=== PATIENT | male | born 1955 | race Caucasian/White ===

== ENCOUNTER 2024-08-03 17:43 | Observation (INO) | payer MEDICARE, OTHER, SELFPAY ==
--- NOTE | ~2024-08-03 | CT_ITS ---
EXAMINATION: CT brain wo con DATE: 08/03/2024 18:08 INDICATION: resolved episode of R sided weakness . TECHNIQUE: Computed tomography (CT) of the head was performed without intravenous contrast. The mA wa s adjusted according to patient size. Iterative reconstruction technique was employed. The dose-lengt h product was 681.00 mGy-cm. COMPARISON: None. FINDINGS: No acute intracranial hemorrhage or extra-axial fluid collection. No hydrocephalus, mass, or herniation. No acute ischemic infarct. Unremarkable dural venous sinus attenuation. No acute osseous abnormality. Left frontal craniotomy defect. Right posterior ethmoid retention cyst/polyp, the remaining aerated spaces are clear. Right frontal and bilateral periventricular encephalomalacia. IMPRESSION: No acute intracranial process. Reviewed, dictated and finalized at location K.
--- NOTE | ~2024-08-03 | CT_ITS ---
EXAMINATION: CTA brain carotid DATE: 08/03/2024 21:35 INDICATION: R sided weakness, resolved TECHNIQUE: Computed tomographic angiography (CTA) of the head and neck was performed with 100 mL Omni paque-350 intravenous contrast. Automated exposure control and iterative reconstruction technique wer e employed. The dose-length product was 1227.40 mGy-cm. Maximum intensity projection and volume rende red 3D-reconstructions were created by the technologist on a separate workstation. COMPARISON: CT brain, same date. FINDINGS: CTA HEAD: No large vessel occlusion, aneurysm, high flow vascular malformation, nidus or extravasation. No cont rast filling in the distal portion of the sigmoid sinus and upper left internal jugular vein. Symmetr ic parenchymal enhancement. CTA NECK: Aortic arch and proximal great vessels: Bovine arch. Dilation of the aortic arch to 3.2 cm. Right common carotid, carotid bifurcation, and internal carotid artery: No plaque.There is 0% stenosi s of the proximal right internal carotid artery relative to normal distal artery lumen diameter (NASC ET criteria). Left common carotid, carotid bifurcation, and internal carotid artery: No plaque.There is 0% stenosis of the proximal left internal carotid artery relative to normal distal artery lumen diameter (NASCET criteria). Vertebral arteries: No significant plaque or stenosis. Left vertebral artery is dominant. Short segme nts of the bilateral vertebral arteries are obscured by metal artifact. Other findings: No contrast filling in the mid and upper portions of the left internal jugular vein. Bilateral apical pleural thickening. ACDF hardware spanning C3-C6. IMPRESSION: No large vessel intracranial occlusion, high-grade intracranial stenosis, or aneurysm. No carotid or vertebral artery occlusion, dissection, or significant stenosis. Nonfilling of the distal sigmoid sinus and upper/mid internal jugular vein on the left, which may be secondary to thrombus or unopacified blood/contrast phase. Consider MRV for further evaluation. Thoracic aortic ectasia. Reviewed, dictated and finalized at location K. IMPRESSION: No large vessel intracranial occlusion, high-grade intracranial stenosis, or an eurysm. No carotid or vertebral artery occlusion, dissection, or significant stenosis. Nonfilling of the distal sigmoid sinus and upper/mid internal jugular vein on t he left, which may be secondary to thrombus or unopacified blood/contrast phase . Consider MRV for further evaluation. Thoracic aortic ectasia.
--- NOTE | ~2024-08-03 | XR_ITS ---
XR chest 2V Ordering provider: Wanda Ruby MD History: 69 years Male with . resolved R sided weakness . Comparison: None. FINDINGS: MEDIASTINUM: The cardiac silhouette is not enlarged. LUNGS: No infiltrates, effusions or pneumothorax. OTHER: No free air under the diaphragm. Left Shoulder osteoarthritic changes. Degenerative changes of the spine IMPRESSION: No acute cardiopulmonary pathology. Reviewed, dictated and finalized at location A.
--- NOTE | 2024-08-03 17:43 | ECG_ITS ---
Test Date: 2024-08-03 18:35:55 Measurements Intervals [place] Rate: 69 P: 43 MO: 164 QRS: 2 QRSD: 115 T: 58 QT: 379 QTc: 406 Interpretive Statements SINUS RHYTHM MODERATE INTRAVENTRICULAR CONDUCTION DELAY [110+ ms QRS DURATION] No previous ECG available for comparison Electronically Signed On 08-04-2024 11:50:30 CDT by Coleen Zhou M.D.
[2024-08-03 17:47] VITALS: BP 145/92; PULSE 75; RESP 16; TEMP 36.4; O2SAT 99
--- NOTE | 2024-08-03 18:01 | PC.NURSE ---
Pt. states i just peed less than an hour ago. Pt. is aware MD would like a urine sample and will let RN know when he is able to go.
[2024-08-03 18:04] LABS: Glucose Point of Care 121 mg/dl (65-105)
[2024-08-03 18:08] LABS: Basophils Percent Auto 0.3 % (0.2-1.2); Eosinophils Absolute Auto 0.2 K/mm3 (0-0.3); Eosinophils Percent Auto 2.5 % (0-4.4); Hematocrit 36.8 % (42.0-52.0); Hemoglobin 12.5 g/dL (14.0-18.0); Immature Granulocyte Absolute 0.02 K/mm3 (0.00-0.031); Immature Granulocyte Percent A 0.3 % (0-0.5); Lymphocytes Absolute Auto 1.78 K/mm3 (0.9-3.2); Lymphocytes Percent Auto 27.6 % (18.3-44.2); Mean Corpuscular Hemoglobin 34.8 pg (26-34); Mean Corpuscular Volume 102.5 fl (80-100); Mean Platelet Volume 8.7 fl (7.4-10.4); Monocytes Absolute Auto 0.5 K/mm3 (0.1-0.6); Monocytes Percent Auto 8.4 % (2.6-8.5); Neutrophils Absolute Auto 3.9 K/mm3 (1.3-6.7); Neutrophils Percent Auto 60.9 % (45.5-73.1); Platelet Count Result 246 k/mm3 (150-375); Red Blood Count 3.59 M/mm3 (4.6-6.20); Red Cell Distribution Width 12.4 % (11.5-14.5); White Blood Count 6.5 K/mm3 (4.5-10.0)
[2024-08-03 18:19] LABS: INR 0.9; Prothrombin Time 12.9 Seconds (11.1-14.7)
[2024-08-03 18:20] LABS: Partial Thromboplastin Time 26.5 Seconds (22.3-36.8)
[2024-08-03 18:22] LABS: Alanine Aminotransferase 21 U/L (6-50); Albumin Level 4.2 g/dL (3.5-5.1); Alkaline Phosphatase 82 U/L (38-126); Anion Gap 8 mmol/L (4-12); Aspartate Amino Transferase 29 U/L (17-59); Bilirubin,Total 0.2 mg/dL (0.2-1.3); Blood Urea Nitrogen 19 mg/dL (9-20); Carbon Dioxide 24 mmol/L (22-30); Chloride 101 mmol/L (98-107); Estimated CRCL calculation 63 ml/min; Estimated Glomerular Filt Rate > 60; Glucose 122 mg/dL (65-110); Potassium 3.4 mmol/L (3.4-5.0); Sodium 133 mmol/L (137-145)
[2024-08-03 18:34] LABS: Troponin I < 0.012 ng/mL (0.000-0.034)
--- OUTSIDE RECORDS SUMMARY | 2024-08-03 21:00 | XMS_ITS | Clinical Summary ---
Author Organization [facility] Address [address] [place] [address] Care Team Providers Care Tar Heater Name Role Phone Kaela Stephenson Vaughn APNP-TRANSPORTATION AIDE Unavailable [phone] Kaela Stephenson APNP-TRANSPORTATION AIDE Unavailable [phone] Reji Barnett MD Primary Care Provider [phone] Source Comments [facility],non-owned Affiliates and Associated Physician Practices is amultiple site organization consisting of ambulatory clinics and hospital sitesin [place], [place], [place] and [place]. This disclosure is being madepursuant to the Care Everywhere program and may not contain all information available regarding this patient. Last updated 17.[facility] Allergies No known active allergies Medications * Be aware that medications may not be up to date on this document. Alwaysverify current medications with the patient. Calcium Carbonate-Vit D-Min (CALCIUM 1200) [id number] MG-UNIT CHEW Take 1 tablet by mouth 2 times daily 6 Active Multiple Vitamin (MULTI-DAY VITAMINS) TABS Take 1 (one) tablet by mouth once daily 6 Active acetaminophen (Tylenol) 325 MG tablet Take 2 (two) tablets by mouth every 6 hours as needed for Fever or Pain Maximum allowable Acetaminophen amount = 4 Grams (4000 mg) / 24 hours. 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 [facility] 199610/01/2023 Hyperopia of both eyes with astigmatism and pres byopia 07/10/2023 Absolute anemia 03/13/2022 History of rectal bleeding 03/13/2022 Nuclear sclerosis of both eyes 03/30/2019 Dry eye syndrome of both eyes 03/30/2019 Meibomian gland dysfunction (MGD) of upper and lower lids of both eyes 03/30/2019 Primary osteoarthritis, left shoulder 11/19/2018 Bladder outflow obstruction 07/14/2018 Overactive detrusor 07/14/2018 Status post C4-5, C5-6 ACDF for mobile spondylolisthesis, myelopathy 04/15/2018 Cervical stenosis of spine 09/19/2017 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 09/02/2017 Cervical radiculopathy 07/24/2017 Carpal tunnel syndrome, bilateral 07/24/2017 Benign prostatic hyperplasia with urinary freque ncy 09/14/2016 History of brain tumor 05/07/2016 Overview (11/14/2017): 1996: brain tumor , 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 - surgery at [place], and radiation in [place] at [facility] - Tegretol Seizure 05/07/2016 Overview (11/14/2017): - chronic tegretol - reports normal BMD [id number] Tubular adenoma 05/03/2016 Overview (11/14/2017): 2012 : tubular adenoma , repeat 2018 Urge incontinence 03/04/2016 Resolved Problems Problem Noted Date Diagnosed Date Resolved Date Hyperopic astigmatism of both eyes 03/30/2019 07/10/2023 Presbyopia 03/30/2019 07/10/2023 Medication management 07/30/20172024 Oligodendroglioma 07/30/2016 07/07/2024 Preventative health care 05/03/2016 Encounters Date Type Department Care Team Description 07/12/2024 9:45 AM CDT Office Visit [facility] - Optometry [address] [place] [address] Edilia, Shalom L, OD Combined forms of age-related cataract of both eyes (Primary Dx); Meibomian gland dysfunction (MGD) of upper and lower lids of both eyes; Dry eye syndrome of both eyes; Hyperopia of both eyes with astigmatism and presbyopia 07/12/2024 Results Follow-Up [facility] - Internal Medicine [address] [place] [address] Russ Echevarria PA-C 07/12/2024 Travel 07/08/2024 11:45 AM CDT Office Visit [facility] - Internal Medicine [address] [place] [address] Russ Echevarria PA-C Medicare annual wellness visit, initial (Primary Dx); History of brain tumor; Hx of craniotomy for resection of oligodendroglioma [facility] 1996; Seizure (HCC); Hyponatremia; Urge incontinence; Bladder outflow obstruction; Cervical stenosis of spine; Status post C4-5, C5-6 ACDF for mobile spondylolisthesis, myelopathy; Primary osteoarthritis, left shoulder; Chronic pain of left knee; Primary osteoarthritis involving multiple joints; History of chest pain; Tubular adenoma; Screening, lipid; Screening for colon cancer; Prostate cancer screening; Need for vaccination 07/08/2024 Travel 06/28/2024 Travel 06/08/[address] [facility] - Neurology [address] [place] [address] Emil Houston MD Refill Request from Last 3 Months Immunizations Immunization Administration Dates Next Due COVID PFIZER BIVALENT 12Y+ 30mcg/0.3ML 2 Covid Pfizer primary monoval ent 12+ yr 0.3mL Purple cap 09/07/2020,08/16/2020 INFLUENZA VACCINE, ADJUVANTE D, QUADR. (FLUAD QUADRIVALENT; 65Y+) (AIIV4) 03/13/2022 TDAP (7yrs+) 09/27/2014 TDAP, HISTORIC VACCINE 10/07/2014 Family History Medical History Relation Name Comments None Known Brother leida Status: Alive None Known Father None Known Maternal Grandfather Status: None Known Maternal Grandmother Status: Thyroid Disease Mother Cancer Paternal Grandfather unknown ; Status: None Known Paternal Grandmother Status: Thyroid Disease Sister 1 hailey None Known Sister 2 maddie Status: Alive Thyroid Disease Sister 3 brendan None Known Sister 4 mecca Status: Alive None Known Sister 5 syd Status: Alive CAD (Coronary Artery Disease) Neg Hx Cancer - Colon Neg Hx Diabetes Neg Hx Relation Name Status Comments Brother leida Alive Father Maternal Grandfather Maternal Grandmother Mother Paternal Grandfather Paternal Grandmother Sister 1 hailey Alive Sister 2 maddie Alive Sister 3 brendan Alive Sister 4 mecca Alive Sister 5 syd Alive Social History Tobacco Use Types Packs/Day Years Used Date Smoking Tobacco: Never Passive Smoke Exposure: Past Smokeless Tobacco: Never Tobacco Cessation:Counseling Given: Not Answered Passive Exposure Comments:exposed only for a few yrs as child Alcohol Use Standard Drinks/Week Comments Yes 0 (1 standard drink = 0.6 oz pur e alcohol) 1-2 beers/ week PHQ-2 Answer Date Recorded Patient Health Questionnaire-2 Score 0 07/08/2024 Sex and Gender Information Value Date Recorded Sex Assigned at Not on file Legal Sex Male 1:26 PM CDT Gender Identity Not on file Sexual Orientation Not on file 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 Not on file Not on file Not on file Last Filed Vital Signs Vital Sign Reading Time Taken Comments Blood Pressure 130/80 07/08/2024 11:34 AM CDT Pulse 62 07/08/2024 11:34 AM CDT Temperature 36.4 C (97.6 F) 11/07/2023 8:38 AM CDT Respiratory Rate 12 11/07/2023 11:40 AM CDT Oxygen Saturation 100% 07/08/2024 11:34 AM CDT Inhaled Oxygen Concentration - - Weight 74.4 kg (164 lb) 07/08/2024 11:34 AM CDT Height 182.9 cm (6') 11/07/2023 8:38 AM CDT Body Mass Index 22.24 11/07/2023 8:38 AM CDT Plan of Treatment Upcoming Encounters Date Type Department Care Team (Late st Contact Info) Description 08/19/2024 2:55 PM CDT Office Visit [facility] - Sports Medicine [address] [place] [phone] Russ Echevarria PA-C [address] [place], [place] [id number] Kia Perkins MD [address] [place] [phone] 12/27/2024 1:30 PM CDT Office Visit [facility] - Neurology [address], [place] [phone] Emil Houston MD [address] [facility] [place] [phone] 03/29/2025 9:30 AM GRADER TENDER Office Visit [facility] - Dermatology [address], [place] [phone] Jessica Farnsworth MD [address] [place] [address] [phone] Health Maintenance Due Date Last Done Comments COLOGUARD (AGES 45-75) - COLON CA SCREENING 1955 CT COLONOGRAPHY - COLON CA SCREENING 1955 FIT - COLON CA SCREENING 1955 FLEX SIG - COLON CA SCREENING 1955 PNEUMOCOCCAL VACCINE 50+ (1 of 1 - PCV) 02/23/2006 ZOSTER VACCINE (1 of 2) 02/23/2006 COVID-19 VACCINE (4 - season) 2023 03/13/2022, 09/07/2020, 08/16/2020 DTAP/TDAP/TD VACCINES (3 - Td or Tdap) 10/07/2024 10/07/2014, 09/27/2014 INFLUENZA VACCINE (Season Ended) 2024 03/13/2022 MEDICARE AWV 12 MONTHS 07/08/2025 07/08/2024 LIPID TESTING 07/12/2025 07/12/2024, 04/24, 07/30/2021, Additional history exists COLON MONITORING 11/06/2028 11/07/2023, , 07/21/2018, Additional history exists Colorectal Cancer Screening 11/06/2028 Respiratory Syncytial Virus (RSV) Vaccine Pt: or over 60 yrs (1 - 1-dose 75+ series) 02/23/2031 COLONOSCOPY - COLON CA SCREENING 11/06/2033 11/07/2023, 11/07/2023, 07/21/2018 HEPATITIS C SCREENING Completed 02/28/2016 DEPRESSION SCREENING Completed 07/08/2024, 04/25/2023, 04/22/2022, Additional history exists HEPATITIS B VACCINE Aged Out No longe r eligible based on patient's age to complete this topic HIB VACCINE Aged Out No longer eligi ble based on patient's age to complete this topic HPV VACCINE Aged Out No longer eligi ble based on patient's age to complete this topic MENINGOCOCCAL (Group B) VACCINE SHARED DECISION-MAKING Aged Out No longer eligible based on patient's age to complete this topic MENINGOCOCCAL GROUPS A/C/Y/W VACCINE Aged Out No longer eligible based on patient's age to complete this topic Medical Devices Implanted Type Area Charge Preparation Technician Device Identifier Shelf Expiration Date Model / Serial / Lot Cage Spnl [id number] Tm-S 7d Trpzd Trb Implanted:Qty : 1 on 03/31/2018 by Hany Tate MD at [facility] N/A: Spine Cervical [employer] 07/21/2022-0205 [id number] Cage Spnl [id number] Tm-S 7d Trpzd Trb Implanted:Qty : 1 on 03/31/2018 by Hany Tate MD at [facility] N/A: Spine Cervical [employer] 07/21/2021-0204 / / [id number] Plate 35mm Lck Ti Spne Crv Ant Atlnts Implanted:Qty : 1 on 03/31/2018 by Hany Tate MD at [facility] N/A: Spine Cervical [employer] [id number] / / Screw 4mm 14mm Spne Crv Ant Slf Drl Va Implanted:Qty : 5 on 03/31/2018 by Hany Tate MD at [facility] N/A: Spine Cervical [employer] [id number] / / Procedures Procedure Name Priority Date/Time Associated Diagnosis Comments PROSTATE SPECIFIC ANTIGEN SCREEN Routine 07/12/2024 10:34 AM CDT Prostate cancer screening COMPREHENSIVE METABOLIC PANEL Routine 07/12/2024 10:34 AM CDT Medicare annual wellness visit, initial Hyponatremia CBC W/O DIFFERENTIAL Routine 07/12/2024 10:34 AM CDT Medicare annual wellness visit, initial LIPID PROFILE Routine 07/12/2024 10:34 AM CDT Medicare annual wellness visit, initial Screening, lipid EKG 12-LEAD Routine 07/08/2024 12:12 PM CDT History of chest pain ENDOSCOPY, COLON, SCREENING Routine 11/07/2023 10:24 AM CDT HEPATITIS C ANTIBODY Routine 02/28/2016 5:38 PM GRADER TENDER from Last 3 Months or Most Recently Relevant to Health Maintenance Results * (ABNORMAL) CBC W/O DIFFERENTIAL (07/12/2024 10:34 AM CDT) [facility] WBC 4.3 4.0 - 10.7 x10E9/L 07/12/2024 10:38 AM CDT [facility] RBC Count 3.93(L) 4.30 - 5.80 x10E12/L 07/12/2024 10:38 AM CDT [facility] Hemoglobin 13.8 13.3 - 17.5 g/dL 07/12/2024 10:38 AM T [facility] Hematocrit 39.4 38.7 - 51.1 % 07/12/2024 10:38 AM [facility] MCV 100.3(H) 80.0 - 98.0 fL 07/12/2024 10:38 AM [facility] MCH 35.1(H) 26.7 - 33.6 pg 07/12/2024 10:38 AM T [facility] MCHC 35.0 31.7 - 36.3 g/dL 07/12/2024 10:38 AM [facility] RDW-CV 12.2 11.3 - 14.8 % 07/12/2024 10:38 AM [facility] Platelet Count 279 150 - 420 x10E9/L 07/12/2024 10:38 AM [facility] MPV 8.2 7.8 - 11.4 fL 07/12/2024 10:38 AM [facility] Blood BLOOD SPECIMEN / Unknown Lab Venipuncture / Unknown 07/12/2024 10:34 AM CDT 07/12/2024 10:35 AM CDT Russ Echevarria PA-C LAB - HEMATOLOGY ORDERABLES Final Result [facility] [address] [place], [place] * (ABNORMAL) COMPREHENSIVE METABOLIC PANEL (07/12/2024 10:34 AM CDT) Sodium 134(L) 136 - 145 mmol/L 07/12/2024 1:51 PM CDT [facility] Potassium 4.3 3.5 - 5.1 mmol/L 07/12/2024 1:51 PM CDT [facility] Chloride 100 98 - 107 mmol/L 07/12/2024 1:51 PM CDT [facility] CO2 28 23 - 31 mmol/L 07/12/2024 1:51 PM CDT [facility] Anion Gap 6 6 - 16 mmol/L 07/12/2024 1:51 PM T [facility] Glucose 82 70 - 99 mg/dL 07/12/2024 1:51 PM T [facility] Comment:Reference Range for <2 hours Postprandial: <200 mg/dL BUN 13 9 - 21 mg/dL 07/12/2024 1:51 PM T [facility] Creatinine 0.93 0.72 - 1.25 mg/dL 07/12/2024 1:51 PM T [facility] Protein Total 7.1 6.4 - 8.3 g/dL 07/12/2024 1:51 PM T [facility] Albumin 4.0 3.2 - 4.6 g/dL 07/12/2024 1:51 PM T [facility] Calcium 9.2 8.4 - 10.5 mg/dL 07/12/2024 1:51 PM T [facility] AST 20 5 - 34 U/L 07/12/2024 1:51 PM T [facility] ALT 18 0 - 55 U/L 07/12/2024 1:51 PM [facility] Alkaline Phosphatase 98 40 - 150 U/L 07/12/2024 1:51 PM T [facility] Bilirubin Total 0.3 0.2 - 1.2 mg/dL 07/12/2024 1:51 PM [facility] GFR 89 >=60 mL/min/1.7 3m2 07/12/2024 1:51 PM [facility] Blood BLOOD SPECIMEN / Unknown Lab Venipuncture / Unknown 07/12/2024 10:34 AM CDT 07/12/2024 10:35 AM T [facility] - 07/12/2024 1:51 PM CDT The GFR result was calculated using the updated CKD-EPI Creatinine Equation (2020). us Russ Echevarria PA-C LAB - CHEMISTRY ORDERABLES Final Result [facility] [address] * PROSTATE SPECIFIC ANTIGEN SCREEN (07/12/2024 10:34 AM CDT) Pathologist [facility] PSA Screen 0.14 <=4.50 ng/mL 07/12/2024 2:03 PM CDT [facility] Blood BLOOD SPECIMEN / Unknown Lab Venipuncture / Unknown 07/12/2024 10:34 AM CDT 07/12/2024 10:35 AM CDT Narrative [facility] - 07/12/2024 2:03 PM CDT The testing method is a Chemiluminescent immunoassay manufactured by [employer] and performed on the [employer] system. Values obtained with different assay methods or kits may be different and cannot be used interchangeably. Test results cannot be interpreted as absolute evidence for the presence or absence of malignant disease. Russ Echevarria PA-C LAB - CHEMISTRY ORDERABLES Final Result Performing Organization Address [facility] Co de Phone Number [facility] [address] * (ABNORMAL) LIPID PROFILE (07/12/2024 10:34 AM CDT) Hours Fasting 2 hrs 07/12/2024 1:51 PM CDT [facility] Cholesterol 212(H) <200 mg/dL 07/12/2024 1:51 PM CDT [facility] Comment: <200 Desirable 200-239 Borderline High >239 High Triglycerides 83 <150 mg/dL 07/12/2024 1:51 PM CDT [facility] Comment: The National Cholesterol Education Program (NCEP) recommends fasting for 9- to 12- hours for the most accurate results. <150 Desirable 150-199 Borderline High 200-499 High >499 Very High LDL 105(H) <=99 mg/dL 07/12/2024 1:51 PM CDT [facility] Comment: <100 Optimal 100-129 Near Optimal 130-159 Borderline High 160-189 High >189 Very High HDL 90 >=40 mg/dL 07/12/2024 1:51 PM CDT [facility] Non HDL Cholesterol 122 mg/dL 07/12/2024 1:51 PM CDT [facility] CHOL/HDL RATIO 2 07/12/2024 1:51 PM CDT [facility] Blood BLOOD SPECIMEN / Unknown Lab Venipuncture / Unknown 07/12/2024 10:34 AM CDT 07/12/2024 10:35 AM CDT us Russ Echevarria PA-C LAB - CHEMISTRY ORDERABLES Final Result Performing Organization Address [facility]/ZIP Co de Phone Number [facility] [address] [place] [address] * EKG 12-LEAD (07/08/2024 12:12 PM CDT) Ventricular Rate 55 BPM [facility] Atrial Rate 55 BPM [facility] P-R Interval 158 ms [facility] QRS Duration ms 106 ms [facility] Q-T Interval ms 422 ms [facility] QTC Calculation (Bezet) 403 ms [facility] Calculated P Burton 59 degrees [facility] Calculated R Burton -22 degrees [facility] Calculated T Burton 69 degrees [facility] Interpretation EKG SINUS BRADYCARDIA RSR' OR QR PATTERN IN V1 SUGGESTS RIGHT VENTRICULAR CONDUCTION DELAY BASELINE ARTIFACT ABNORMAL ECG WHEN COMPARED WITH ECG OF 22-APR-2022 17:01, NO SIGNIFICANT CHANGE WAS FOUND Confirmed by KALIN ECHEVARRIA AARON ([id number]) on 07/08/2024 1:03:27 PM [facility] 07/08/2024 12:1 2 PM CDT 07/08/2024 1:03 PM CDT us Russ Echevarria PA-C ECG ORDERABLES Edited Resu lt - Final [facility] * ENDOSCOPY, COLON, SCREENING (11/07/2023 10:24 AM CDT) Report Endoscopy POC __ _ Patient Name: Emil Christian Procedure Date: 11/07/2023 10:24 AM Date of : 1955 Age: 68 Gender: Male Attending MD: Vinnie Ordaz MD, [id number] __ _ Procedure: Colonoscopy Indications: High risk colon cancer surveillance: Personal history of colonic polyps Providers: Vinnie Ordaz MD (Doctor) Patient Profile: This is a 68 year old male who presents for 5 year polyp surveillance. Small polyp in 2019 and 2012. Denies a family history of colon cancer. Mild colon redundancy noted in 2019 and pediatric colonoscopy will be used today. Medicines: Fentanyl 100 micrograms IV, Midazolam 5 mg IV Complications: No immediate complications. __ _ Impression: - The examined portion of the ileum was normal. - The rectum, sigmoid colon, descending colon, transverse colon, ascending colon, cecum, ileocecal valve and appendiceal orifice are normal. - Non-bleeding internal hemorrhoids. - No specimens collected. Recommendation: - Repeat colonoscopy in 10 years for screening purposes. __ _ Estimated Blood Loss: Estimated blood loss was minimal. Procedure: After I obtained informed consent, the scope was passed under direct vision. Throughout the procedure, the patient's blood pressure, pulse, and oxygen saturations were monitored continuously. The PCF-H190L was introduced through the anus and advanced to the terminal ileum. The colonoscopy was performed without difficulty. The patient tolerated the procedure well. The terminal ileum, ileocecal valve, appendiceal orifice, and rectum were photographed. The quality of the bowel preparation was good. Findings: The terminal ileum appeared normal. The rectum, sigmoid colon, descending colon, transverse colon, ascending colon, cecum, appendiceal orifice and ileocecal valve appeared normal. Non-bleeding internal hemorrhoids were found during retroflexion. The hemorrhoids were small. Moderate Sedation: Moderate (conscious) sedation was administered by the nurse and supervised by the endoscopist. The patient's oxygen saturation, heart rate, blood pressure and response to care were monitored. Total physician intraservice time was 20 minutes. Procedure Code(s): --- Professional --- 83055, Colonoscopy, flexible; diagnostic, including collection of specimen(s) by brushing or washing, when performed (separate procedure) G0500, Moderate sedation services provided by the same physician or other qualified health residential care officer performing a gastrointestinal endoscopic service that sedation supports, requiring the presence of an independent trained observer to assist in the monitoring of the patient's level of consciousness and physiological status; initial 15 minutes of intra-service time; patient age 5 years or older (additional time may be reported with 25096, as appropriate) --- Technical --- 19862, Colonoscopy, flexible; diagnostic, including collection of specimen(s) by brushing or washing, when performed (separate procedure) G0500, Moderate sedation services provided by the same physician or other qualified health residential care officer performing a gastrointestinal endoscopic service that sedation supports, requiring the presence of an independent trained observer to assist in the monitoring of the patient's level of consciousness and physiological status; initial 15 minutes of intra-service time; patient age 5 years or older (additional time may be reported with 74958, as appropriate) Diagnosis Code(s): --- Professional --- Z86.010, Personal history of colonic polyps K64.8, Other hemorrhoids --- Technical --- Z86.010, Personal history of colonic polyps K64.8, Other hemorrhoids CPT copyright 2020 [employer]. All rights reserved. The codes documented in this report are preliminary and upon reticle printer review may be revised to meet current compliance requirements. Vinnie Ordaz MD Vinnie Ordaz MD 11/07/2023 10:52:47 AM Number of Addenda: 0 Note Initiated On: 11/07/2023 10:24 AM [facility] 11/07/2023 10:2 4 AM CDT us Vinnie Ordaz MD GI PROCEDURE ORDERABLES Edite d Result - Final Performing Organization Address City/[facility]/ZIP Co de Phone Number [facility] * HEPATITIS C ANTIBODY (02/28/2016 5:38 PM GRADER TENDER) [facility] Signature Hepatitis C Antibody NEGATIVE NEGATIVE 02/29/2016 9:58 AM GRADER TENDER [facility] Blood specimen (specimen) BLOOD SPECIMEN / Unknown 02/28/2016 5:38 PM GRADER TENDER 02/29/2016 7:04 AM GRADER TENDER [place]ul[place] PA-C LAB - CHEMISTRY ORDERABLES F inal Result Performing Organization Address City/[facility]/ZIP Co de Phone Number [facility] [address] [place], [place] from Last 3 Months or Most Recently Relevant to Health Maintenance Insurance [employer] Commercial Man[employer] - Intercompany Address: [address] [address] [place] [address] MEDICARE Advance Directives Documents on File Type Date Recorded Patient [employer] [facility] Healthcare Power of [place] Sifter 04/02/2018 1:16 PM DATE SIGNED 03/30/19 19 * Full Code (Latest Code Status on File) Date Activated Date Inactivated Comments 04/30/2022 2:27 PM 05/01/2022 12:48 PM * Full Code Date Activated Date Inactivated Comments 03/31/2018 5:25 PM 04/01/2018 5:52 PM Care Teams Tar Heater Relationship Specialty Start Date End Date Kaela Stephenson APNP-MARIE [address] [place] [phone] PCP - Attributed-[employer] 05/23/23 Kaela Stephenson APNP-TRANSPORTATION AIDE [address] [place] [phone] PCP - Attributed-[employer] [place] 05/23/23 Reji Barnett MD [address] [place] [phone] PCP - General 01/01/24
--- OUTSIDE RECORDS SUMMARY | 2024-08-03 21:00 | XMS_ITS | Clinical Summary ---
Author Organization [facility] Address [address] [place] [address] Care Team Providers Care Accountant Auditor Name Role Phone Santo Felipe MD, Mak Unavailable [phone] Allergies No known active allergies Medications ZYRTEC 10 MG OR TABS PRN Active carbamazepine (TEGRETOL) 200 MG tabletIndicatio ns:Oligodendrog lioma ([facility]),Partia l epilepsy ([facility]),Epilep sy ([facility]) take 2 tablets in the am, 1/2 tablet in the afternoon, and 2 tablets in the pm 405 tablet 3 05/25/2012 Active Active Problems No known active problems Social History Tobacco Use Types Packs/Day Years Used Date Smoking Tobacco: Never Smokeless Tobacco: Never Alcohol Use Standard Drinks/Week Comments Not Asked 0 (1 standard drink = 0.6 oz pur e alcohol) Sex and Gender Information Value Date Recorded Sex Assigned at Not on file Legal Sex Male 12:14 PM CDT Gender Identity Not on file Sexual Orientation Not on file Last Filed Vital Signs Vital Sign Reading Time Taken Comments Blood Pressure 110/70 05/25/2012 1:46 PM FERRY BOAT CAPTAIN Pulse 68 05/25/2012 1:46 PM FERRY BOAT CAPTAIN Temperature - - Respiratory Rate 16 02/26/2006 4:45 PM FERRY BOAT CAPTAIN Oxygen Saturation - - Inhaled Oxygen Concentration - - Weight 75.3 kg (166 lb) 05/25/2012 1:46 PM FERRY BOAT CAPTAIN Height 182.9 cm (6') 05/25/2012 1:46 PM FERRY BOAT CAPTAIN Body Mass Index 22.51 05/25/2012 1:46 PM FERRY BOAT CAPTAIN Plan of Treatment Health Maintenance Due Date Last Done Comments Colorectal Cancer Screening Colonoscopy (10 Years) 1955 Hepatitis C 02/23/1974 DTaP, Tdap and Td Vaccines ( 1 - Tdap) 02/23/1975 Pneumococcal Vaccine: 50+ Ye ars (1 of 1 - PCV) 02/23/2006 Zoster Vaccines (1 of 2) 02/23/2006 COVID-19 Vaccine (1 - 2023-2 5 season) 2023 RSV Immunization or 60+ Years (1 - 1-dose 75+ series) 02/23/2031 Meningococcal B Vaccine Aged Out No l onger eligible based on patient's age to complete this topic Meningococcal Vaccine Aged Out No toni fernando eligible based on patient's age to complete this topic RSV Immunizations Under 20 Months Aged Out No longer eligible based on patient's age to complete this topic Insurance Care Teams Accountant Auditor Relationship Specialty Start Date End Date Obdulio Blanchard MD [facility] [place] [id number] PCP - NEUROLOGY 09/08/08
--- OUTSIDE RECORDS SUMMARY | 2024-08-03 21:00 | XMS_ITS | Encounter Summary ---
Author Organization [facility] Address [address] [place] [id number] Care Team Providers Care Cigarette Inspector Name Role Phone Santo Felipe MD, Obdulio Unavailable [phone] Encounter Details Date Type Department Care Team (Late st Contact Info) Description 05/17/2010 [facility] NEUROLOGY [address] [place] [id number] [place] [address] [place] [id number] Social History Tobacco Use Types Packs/Day Years Used Date Smoking Tobacco: Never Smokeless Tobacco: Never Alcohol Use Standard Drinks/Week Comments Not Asked 0 (1 standard drink = 0.6 oz pur e alcohol) Sex and Gender Information Value Date Recorded Sex Assigned at Not on file Legal Sex Male 12:14 PM CDT Gender Identity Not on file Sexual Orientation Not on file documented as of this encounter Progress Notes * Obdulio Blanchard V - 05/18/2010 3:52 PM CSTAssociated Order(s): MRI GENERIC [place], [place] MRI REPORT PT NAME: EMIL AGUILAR MD: Obdulio Blanchard MD MR #: [id number] YONATHAN MD: ADMIT: 05/17/2010 : 1955 SEX: M AGE: 55 SERVICE: 05/17/2010 REQ: [id number] PT LOC: MRI ORDERING MD: Obdulio Blanchard MD DICT MD: Obdulio Blanchard MD Interpretation Location: [facility] DX: Oligodendroglioma. ORDER: TIARA MRI HEAD W DATE OF EXAM: 05/17/2010 1. An MRI scan of the head was obtained utilizing T1 weighted, T2 weighted, FLAIR sequences and diffusion-weighted sequences in the axial plane and FLAIR sequences in the sagittal plane all without contrast. Subsequently gadolinium contrast is administered and T1 weighted scan sequences in the axial, sagittal and coronal planes were obtained. 2. This study is of good quality. 3. The ventricles appear prominent. The left lateral ventricle is slightly larger than the right. 4. There is an irregular area of long T1-T1 signal intensity with craniotomy noted in the left mid frontal location. This area of encephalomalacia extends from the craniotomy to the deep subcortical white matter with some ex vacuo enlargement of the lateral horn of the left lateral ventricle. There is no midline shift noted. Following contrast administration, the punctate area of enhancement noted in the superior aspect adjacent to the dura of the encephalomalacia. 5. On the FLAIR axial and sagittal sequences. There is a hypodense area surrounded by hyperintense suggesting gliosis, which extends to the dorsal surface of the ventricle. 6. On the gradient sequences there is hemorrhage identified at the operative bed as evidenced by blooming artifact. 7. Appropriate signal flow voids were seen in both posterior as well as anterior circulation. The calvarium shows a craniotomy defect. The orbits and the sinuses appear unremarkable. The mastoids appear well aerated at the craniocervical junction. The brainstem, the cerebellum, pituitary foci, and the posterior nasopharynx looks normal. The corpus callosum appears normal. 8. Normal vascular enhancement was identified. 10. CONCLUSION: Abnormal MRI scan of the brain performed with and without contrast demonstrating craniotomy in the left mid frontal location with cystic encephalomalacia adjacent to the craniotomy. A punctate area with enhancement is noted superiorly and dural enhancement at the operative bed. This was also seen on the prior study performed on 10/10/2008. In direct comparison to the previous study, there has been no appreciable interval change noted. The enhancement might represent either residual tumor postoperative enhancement. No evidence of any acute ischemia noted. Subtle blood products were identified at the operative bed. This also remains unchanged. Correlate these findings clinically. ALLYN/davidson Doc#: [id number] P P cc: Obdulio Blanchard MD MAKING MACHINE OPERATOR documented in this encounter Plan of Treatment Not on file documented as of this encounter Procedures Procedure Name Priority Date/Time Associated Diagnosis Comments MRI GENERIC 05/18/2010 9:16 PM PAD MAKING MACHINE OPERATOR documented in this encounter Results * MRI GENERIC (05/18/2010 9:16 PM PAD MAKING MACHINE OPERATOR) RAD 05/18/2010 9:16 PM PAD MAKING MACHINE OPERATOR Narrative Procedure Note Obdulio Blanchard V - 05/18/2010 3[place] PT NAME: SILVESTRECRISTELA EMIL Matteo ADM MD: Obdulio Blanchard MD MR #: [id number] [facility] MD: ADMIT: 05/17/2010 : 1955 SEX: M AGE: 55 SERVICE: 05/17/2010 REQ: [id number] PT LOC: MRI ORDERING MD: Obdulio Blanchard MD DICT MD: Obdulio Blanchard MD Interpretation Location: [facility] DX: Oligodendroglioma. ORDER: TIARA MRI HEAD W DATE OF EXAM: 05/17/2010 1. An MRI scan of the head was obtained utilizing T1 weighted, T2 weighted, FLAIR sequences and diffusion-weighted sequences in the axial plane and FLAIR sequences in the sagittal plane all without contrast. Subsequently gadolinium contrast is administered and T1 weighted scan sequences in the axial, sagittal and coronal planes were obtained. 2. This study is of good quality. 3. The ventricles appear prominent. The left lateral ventricle is slightly larger than the right. 4. There is an irregular area of long T1-T1 signal intensity with craniotomy noted in the left mid frontal location. This area of encephalomalacia extends from the craniotomy to the deep subcortical white matter with some ex vacuo enlargement of the lateral horn of the left lateral ventricle. There is no midline shift noted. Following contrast administration, the punctate area of enhancement noted in the superior aspect adjacent to the dura of the encephalomalacia. 5. On the FLAIR axial and sagittal sequences. There is a hypodense area surrounded by hyperintense suggesting gliosis, which extends to the dorsal surface of the ventricle. 6. On the gradient sequences there is hemorrhage identified at the operative bed as evidenced by blooming artifact. 7. Appropriate signal flow voids were seen in both posterior as well as anterior circulation. The calvarium shows a craniotomy defect. The orbits and the sinuses appear unremarkable. The mastoids appear well aerated at the craniocervical junction. The brainstem, the cerebellum, pituitary foci, and the posterior nasopharynx looks normal. The corpus callosum appears normal. 8. Normal vascular enhancement was identified. 10. CONCLUSION: Abnormal MRI scan of the brain performed with and without contrast demonstrating craniotomy in the left mid frontal location with cystic encephalomalacia adjacent to the craniotomy. A punctate area with enhancement is noted superiorly and dural enhancement at the operative bed. This was also seen on the prior study performed on 10/10/2008. In direct comparison to the previous study, there has been no appreciable interval change noted. The enhancement might represent either residual tumor postoperative enhancement. No evidence of any acute ischemia noted. Subtle blood products were identified at the operative bed. This also remains unchanged. Correlate these findings clinically. PK/sbe Doc#: [id number] P P cc: Obdulio Blanchard MD Obdulio Felipe MD [facility] Final Result documented in this encounter Visit Diagnoses Not on filedocumented in this encounter Care Teams Cigarette Inspector Relationship Specialty Start Date End Date Obdulio Blanchard MD [address] [place] [id number] PCP - NEUROLOGY 09/08/08 documented as of this encounter
--- NOTE | 2024-08-03 21:39 | PC.NURSE ---
Called and spoke with Jing in lab and added ethanol onto patient labs.
[2024-08-03 21:57] LABS: Ethanol < 10 mg/dL (<10)
[2024-08-03 22:43] VITALS: BP 144/92; PULSE 76; RESP 16; O2SAT 97
--- NOTE | 2024-08-03 23:12 | ED.GENADULT ---
HPI - General Adult General Chief complaint: Weakness Stated complaint: resolved R sided weakness Time Seen by Provider: 08/03/24 20:13 History of Present Illness HPI narrative: This is a 69-year-old male history of brain tumor treated with resection and seizure disorder presenting for transient neurologic symptoms. Patient is from [place] and is visiting his friend [facility]. They spent the day at [facility] where he had 2 beers. When he got home they were standing talking in the yd when he suddenly felt strange. He then developed right arm and right leg weakness and had to sit down before fell. Symptoms lasted 10 minutes. He then completely resolved. Patient is currently denying any symptoms and feels well. He says that the fluids he received from EMS helped dramatically. Related Data Allergies Allergy/AdvReac Type Severity Reaction Status Date / Time No Known Allergies Allergy Verified 08/03/24 17:57 Course Vital Signs Vital signs: Vital Signs Temperature 97.6 F 08/03/24 17:47 Pulse Rate 75 08/03/24 17:47 Respiratory Rate 16 08/03/24 17:47 Blood Pressure 145/92 H 08/03/24 17:47 Pulse Oximetry 99 08/03/24 17:47 Oxygen Delivery Room Air 08/03/24 17:47 Temperature 97.6 F 08/03/24 17:47 Pulse Rate 76 08/03/24 22:43 Respiratory Rate 16 08/03/24 22:43 Blood Pressure 144/92 H 08/03/24 22:43 Pulse Oximetry 97 08/03/24 22:43 Oxygen Delivery Room Air 08/03/24 17:47 Medical Decision Making [facility] Narrative Medical decision making narrative: -Course: This is a 69-year-old male history of brain tumor treated with resection ', seizure disorder presenting for transient neurologic symptoms. Last known normal was 1709. Symptoms included right arm and right leg weakness. Current NIH is 0. CT brain without bleed. CTA unremarkable with no stenosis occlusion or dissection. Case was discussed with Dr. Zayas. Patient will be admitted for TIA workup. -DDX includes but is not limited to: Focal seizure, TIA, recrudescence of neurologic sxs from brain surgery, orthostatic hypotension, dehydration alcohol intoxication -Co-morbidities complicating care: History of brain mass with resection, seizure disorder Vital Signs Vital Signs: Vital Signs Temperature 97.6 F 08/03/24 17:47 Pulse Rate 75 08/03/24 17:47 Respiratory Rate 16 08/03/24 17:47 Blood Pressure 145/92 H 08/03/24 17:47 Pulse Oximetry 99 08/03/24 17:47 Oxygen Delivery Room Air 08/03/24 17:47 Temperature 97.6 F 08/03/24 17:47 Pulse Rate 76 08/03/24 22:43 Respiratory Rate 16 08/03/24 22:43 Blood Pressure 144/92 H 08/03/24 22:43 Pulse Oximetry 97 08/03/24 22:43 Oxygen Delivery Room Air 08/03/24 17:47 Lab Data 08/03/24 18:03 08/03/24 18:03 Labs: Lab Results 08/03/24 08/03/24 Range/Units 18:01 18:03 WBC 6.5 (4.5-10.0) K/mm3 RBC 3.59 L (4.6-6.20) M/mm3 Hgb 12.5 L (14.0-18.0) g/dL Hct 36.8 L (42.0-52.0) % MCV 102.5 H (80-100) fl MCH 34.8 H (26-34) pg MCHC 34.0 (32-36) g/dl RDW 12.4 (11.5-14.5) % Plt Count 246 (150-375) k/mm3 MPV 8.7 (7.4-10.4) fl Immature Gran % (Auto) 0.3 (0-0.5) % Neut % (Auto) 60.9 (45.5-73.1) % Lymph % (Auto) 27.6 (18.3-44.2) % [place] % (Auto) 8.4 (2.6-8.5) % Eos % (Auto) 2.5 (0-4.4) % Baso % (Auto) 0.3 (0.2-1.2) % Lymph # (Auto) 1.78 (0.9-3.2) K/mm3 [place] # (Auto) 0.5 (0.1-0.6) K/mm3 Eos # (Auto) 0.2 (0-0.3) K/mm3 Baso # (Auto) 0.0 (0.0-0.1) K/mm3 Abs Immat Gran (auto) 0.02 (0.00-0.031) K/mm3 Absolute Neuts (auto) 3.9 (1.3-6.7) K/mm3 Absolute Nucleated RBC 0.000 (0.0-0.012) K/mm3 Nucleated RBC % 0.0 (0.0-0.2) % PT 12.9 (11.1-14.7) Seconds INR 0.9 APTT 26.5 (22.3-36.8) Seconds Sodium 133 L (137-145) mmol/L Potassium 3.4 (3.4-5.0) mmol/L Chloride 101 (98-107) mmol/L Carbon Dioxide 24 (22-30) mmol/L Anion Gap 8 (4-12) mmol/L BUN 19 (9-20) mg/dL Creatinine 1.05 (0.7-1.3) mg/dL Estim Creat Clear Calc 63 ml/min Estimated GFR > 60 (59 - ) Glucose 122 H (65-110) mg/dL POC Capillary Glucose 121 H (65-105) mg/dl Calcium 9.0 (8.4-10.2) mg/dL Total Bilirubin 0.2 (0.2-1.3) mg/dL AST 29 (17-59) U/L ALT 21 (6-50) U/L Alkaline Phosphatase 82 (38-126) U/L Troponin I < 0.012 (0.000-0.034) ng/mL Total Protein 7.0 (6.3-8.2) g/dL Albumin 4.2 (3.5-5.1) g/dL Ethyl Alcohol < 10 (<10) mg/dL Discharge Plan Discharge Clinical Impression: Brain TIA Patient Disposition: Still a Patient Condition: Stable Patient Language: Malay Follow-up/Referrals: UNKNOWN,DOCTOR [Primary Care Provider] -
--- NOTE | 2024-08-03 23:30 | PC.NURSE ---
Assumed care of patient after receiving report from KATHIA Enamorado @ [phone]
[2024-08-03 23:38] VITALS: BP 153/99; PULSE 61; RESP 13; O2SAT 99
[2024-08-04] VITALS (9 sets, daily range): BP systolic 142–166; BP diastolic 85–110; PULSE 57–72; RESP 12–18; TEMP 36.4–36.8; O2SAT 98–100; BMI 21.4
--- NOTE | 2024-08-04 01:54 | ADMGEN ---
This patient, Emil Christian, was admitted to Medical Room 254-01. Patient/family oriented to hospital policies and general routines including ID bracelet, bed and alarms, visiting hours, pain management, procedures, bathroom and other care routines, personal items, smoking policy, room service/diet, and visiting hours. Information on how to activate the Rapid Response Team has been discussed. Patient/Family are encouraged to report perceived risks to care and to ask questions if they do not understand what they are told or what they should do.
[2024-08-04 08:42] LABS: Basophils Percent Auto 0.4 % (0.2-1.2); Eosinophils Absolute Auto 0.2 K/mm3 (0-0.3); Eosinophils Percent Auto 3.1 % (0-4.4); Hematocrit 38.2 % (42.0-52.0); Immature Granulocyte Absolute 0.01 K/mm3 (0.00-0.031); Immature Granulocyte Percent A 0.2 % (0-0.5); Lymphocytes Absolute Auto 1.39 K/mm3 (0.9-3.2); Lymphocytes Percent Auto 26.6 % (18.3-44.2); Mean Platelet Volume 8.6 fl (7.4-10.4); Monocytes Absolute Auto 0.5 K/mm3 (0.1-0.6); Monocytes Percent Auto 9.8 % (2.6-8.5); Neutrophils Absolute Auto 3.1 K/mm3 (1.3-6.7); Neutrophils Percent Auto 59.9 % (45.5-73.1); Platelet Count Result 259 k/mm3 (150-375); Red Blood Count 3.71 M/mm3 (4.6-6.20); Red Cell Distribution Width 12.5 % (11.5-14.5); White Blood Count 5.2 K/mm3 (4.5-10.0)
[2024-08-04 09:21] LABS: Alanine Aminotransferase 21 U/L (6-50); Albumin Level 4.2 g/dL (3.5-5.1); Alkaline Phosphatase 86 U/L (38-126); Anion Gap 7 mmol/L (4-12); Aspartate Amino Transferase 30 U/L (17-59); Bilirubin,Total 0.5 mg/dL (0.2-1.3); Blood Urea Nitrogen 15 mg/dL (9-20); Calcium 8.9 mg/dL (8.4-10.2); Carbon Dioxide 27 mmol/L (22-30); Chloride 102 mmol/L (98-107); Estimated CRCL calculation 78 ml/min; Estimated Glomerular Filt Rate > 60; Glucose 95 mg/dL (65-110); Potassium 3.4 mmol/L (3.4-5.0); Sodium 136 mmol/L (137-145)
[2024-08-04] MEDS: levETIRAcetam 500 MG TABLET PO ×2 (09:35→11:07)
[2024-08-04] MEDS: carBAMazepine 200 MG TABLET PO (11:07)
--- NOTE | 2024-08-04 12:11 | P.CONNEU_ITS ---
Assessment and Plan Assessment and plan (1) Hx of seizure disorder: Code(s): Z86.69 - Personal history of other diseases of the nervous system and sense organs Status: Acute (2) Brain TIA: Code(s): G45.9 - Transient cerebral ischemic attack, unspecified Status: Acute (3) History of brain tumor: Code(s): Z87.898 - Personal history of other specified conditions Status: Acute Plan 1. status post excision of oligodendroglioma by the neurosurgical service in [place] in 1996 2. No history of seizure otherwise up until now with symptoms of right upper and right lower extremity weakness raising the possibility of TIA versus the focal seizure. Patient has been receiving levetiracetam 500mg q.12 hours in addition to carbamazepine 200mg q.12 hours, MRIs being awaited once studies completed further recommendation will be made, question regarding possibility of the partial or incomplete seizure but patient is already covered with the anticonvulsants and has no history of generalized tonic clonic seizure ,medication can be continued as such, MRI will help us in deciding further what else to recommend. If necessary we can increase the Keppra 750mg q.12 hours if he has no evidence of any new stroke. Considering the possibility of TIA, obtain the echocardiogram as CTA has been done which is fairly nonsignificant except the mention about thoracic aortic ectasia. 2. B12 folate levels can be checked as his MCV is 103.0 definitely abnormal 3. If patient stays in the hospital a routine EEG will be helpful. Consult date: 08/04/24 HPI: mEil Christian is a 69 year old male admitted to the hospital through the emergency room for the complaints of transient neurological symptomatology described as sensation of feeling strange while standing and subsequently developing right upper extremity and right lower extremity weakness lasting only for 10minutes. He is not allergic to any medications. On initial evaluation vital signs were normal, And his evaluation revealed normal CBC with MCV of 103.0, normal BMP, normal mast scan, normal CT scan of the head , normal CTA except nonfilling of the distal sigmoid sinus on the left side raising the possibility of thrombus or a non opacified blood contrast phase. Review of Systems 2 Review of Systems: All systems reviewed & are unremarkable except as noted in HPI and below PMFSH Past Medical History Medical History Right sided weakness Left-sided weakness Social History Social History Smoking status: Never smoker Alcohol intake: current Drinks per week: 2 Substance use: never Do You Feel Safe in your Home?: Yes Lack of Transportation: No Lack of Food: Never True Current Housing: I Have Housing Concerned About Future Housing: No Difficulty Paying Gas/Electric Bills: No Difficulty Paying for Meds: No Currently Unemployed: No Education: Bachelor's Degree Difficulty w/ Childcare or Family Care: YES Spiritual care concerns: No Meds Home Medications and Allergies Home Medications ?Medication ?Instructions ?Recorded ?Confirmed ?Type acetaminophen 325 mg tablet 325 mg PO BID 08/04/24 08/04/24 History (Aminofen) calcium carb-ergocalciferol (vit 2 tablet PO DAILY 08/04/24 08/04/24 History D2) 600 mg calcium-200 unit tablet carbamazepine 200 mg tablet 200 mg PO Q12H 08/04/24 08/04/24 History cyanocobalamin (vitamin B-12) 1,000 mcg PO DAILY 08/04/24 08/04/24 History 1,000 mcg capsule ibuprofen 200 mg tablet 200 mg PO BID 08/04/24 08/04/24 History levetiracetam 500 mg tablet 500 mg PO Q12H 08/04/24 08/04/24 History [id number] 300 mcg-K 60 1 tablet PO DAILY 08/04/24 08/04/24 History mcg-lycop 600 mcg-lutein 300 mcg tablet (Men 50 Plus Multivitamin) Allergies Allergy/AdvReac Type Severity Reaction Status Date / Time No Known Allergies Allergy Verified 08/03/24 17:57 Vital Signs Vital Signs - 24 hr 08/03/24 17:47 08/03/24 22:43 08/03/24 23:38 Temperature 36.4 C Pulse Rate 75 76 61 Respiratory Rate 16 16 13 Blood Pressure 145/92 H 144/92 H 153/99 H Pulse Oximetry 99 97 99 Oxygen Delivery Room Air 08/04/24 00:41 08/04/24 01:02 08/04/24 01:49 Temperature 36.6 C Pulse Rate 61 60 67 Respiratory Rate 18 12 16 Blood Pressure 143/110 H 150/96 H 166/90 H Pulse Oximetry 98 100 100 Oxygen Delivery 08/04/24 02:33 08/04/24 02:51 08/04/24 03:44 Temperature 36.8 C Pulse Rate 63 63 67 Respiratory Rate 16 17 Blood Pressure 154/88 H Pulse Oximetry 100 100 Oxygen Delivery Room Air Exam 2 Narrative: Reveals him to be awake alert cooperative in no obvious acute distress, head normocephalic with no cranial bruit, ear nose throat examination normal, neck supple with no cervical bruit no thyromegaly no lymphadenopathy, heart regular with no murmur, lungs clear to auscultation, abdomen soft nontender normal bowel sounds, neurologically he is awake alert cooperative in no obvious acute distress somewhat anxious and nervous speech not dysphasic not dysarthric not dysphonic pupils round regular feels the vision full in all 4 quadrants extraocular movements full with no nystagmus facial sensation intact face symmetrical tongue midline uvula midline motor examination revealed him to have normal strength and tone in upper and lower extremities with no evidence of cogwheeling, reflexes symmetrical and plantars are downgoing. Insert gross cerebellar deficit. Results Labs 08/04/24 08:35 08/04/24 08:35 Labs: Short CBC 08/03/24 08/04/24 Range/Units 18:03 08:35 WBC 6.5 5.2 (4.5-10.0) K/mm3 Hgb 12.5 L 13.0 L (14.0-18.0) g/dL Hct 36.8 L 38.2 L (42.0-52.0) % Plt Count 246 259 (150-375) k/mm3 BMP 08/03/24 08/04/24 18:03 08:35 Sodium 133 L 136 L Potassium 3.4 3.4 Chloride 101 102 Carbon Dioxide 24 27 BUN 19 15 Creatinine 1.05 0.80 Glucose 122 H 95 Calcium 9.0 8.9 Cardiac Enzymes 08/03/24 Range/Units 18:03 Troponin I < 0.012 (0.000-0.034) ng/mL Liver Function 08/03/24 08/04/24 Range/Units 18:03 08:35 Total Bilirubin 0.2 0.5 (0.2-1.3) mg/dL AST 29 30 (17-59) U/L ALT 21 21 (6-50) U/L Alkaline Phosphatase 82 86 (38-126) U/L Albumin 4.2 4.2 (3.5-5.1) g/dL
--- NOTE | 2024-08-04 12:58 | P.HP_ITS ---
H&P: HPI History of Present Illness Date/Time: 08/04/24 12:58 Chief Complaint: Right sided weakness Narrative: Sudden onset, right arm and leg without facial weakness Review of Systems Review of Systems: Emil Christian is a 69 year old man remote hx seizure in 1996, oligodendroglioma grade III/IV. 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 Symptoms preceeded by a feeling of lightheadedness and feeling flushed. He sat down so he didn't fall. Symptoms lasted about 10 minutes. Also reported he felt better after IV fluids with EMS. VSS, Afebrile, HR 63-67, BP slightly above goal,145/90, RA in the ED. Not on outpatient meds for blood pressure, which is above goal, BP 154-166/88-90. Labs stable, Na 136, Potassium 3.4, Na 136, otherwise CBC & CMP normal. 08/03 Chest x-ray No acute cardiopulmonary pathology. 08/[address] no acute process 08/03 CTA No large vessel intracranial oc clusion, high-grade intracranial stenosis, or aneurysm. No carotid or vertebral artery occlusion, dissection, or significant stenosis. Nonfilling of the distal sigmoid sinus and upper/mid internal jugular vein on the left, which may be secondary to thrombus or unopacified blood/contrast phase. Consider MRV for further evaluation. [facility] Past Medical History Medical History Right sided weakness Left-sided weakness Social History Social History Smoking status: Never smoker Alcohol intake: current Drinks per week: 2 Substance use: never Do You Feel Safe in your Home?: Yes Lack of Transportation: No Lack of Food: Never True Current Housing: I Have Housing Concerned About Future Housing: No Difficulty Paying Gas/Electric Bills: No Difficulty Paying for Meds: No Currently Unemployed: No Education: Bachelor's Degree Difficulty w/ Childcare or Family Care: YES Spiritual care concerns: No Meds Home Medications and Allergies Home Medications ?Medication ?Instructions ?Recorded ?Confirmed ?Type acetaminophen 325 mg tablet 325 mg PO BID 08/04/24 08/04/24 History (Aminofen) calcium carb-ergocalciferol (vit 2 tablet PO DAILY 08/04/24 08/04/24 History D2) 600 mg calcium-200 unit tablet carbamazepine 200 mg tablet 200 mg PO Q12H 08/04/24 08/04/24 History cyanocobalamin (vitamin B-12) 1,000 mcg PO DAILY 08/04/24 08/04/24 History 1,000 mcg capsule ibuprofen 200 mg tablet 200 mg PO BID 08/04/24 08/04/24 History levetiracetam 500 mg tablet 500 mg PO Q12H 08/04/24 08/04/24 History levetiracetam 750 mg tablet 750 mg PO BID #10 tabs 08/04/24 Rx (Keppra) [id number] 300 mcg-K 60 1 tablet PO DAILY 08/04/24 08/04/24 History mcg-lycop 600 mcg-lutein 300 mcg tablet (Men 50 Plus Multivitamin) Allergies Allergy/AdvReac Type Severity Reaction Status Date / Time No Known Allergies Allergy Verified 08/03/24 17:57 Vital Signs Vital Signs - 24 hr 08/03/24 17:47 08/03/24 22:43 08/03/24 23:38 Temperature 97.6 F Pulse Rate 75 76 61 Respiratory Rate 16 16 13 Blood Pressure 145/92 H 144/92 H 153/99 H Pulse Oximetry 99 97 99 Oxygen Delivery Room Air 08/04/24 00:41 08/04/24 01:02 08/04/24 01:49 Temperature 97.8 F Pulse Rate 61 60 67 Respiratory Rate 18 12 16 Blood Pressure 143/110 H 150/96 H 166/90 H Pulse Oximetry 98 100 100 Oxygen Delivery 08/04/24 02:33 08/04/24 02:51 08/04/24 03:44 Temperature 98.3 F Pulse Rate 63 63 67 Respiratory Rate 16 17 Blood Pressure 154/88 H Pulse Oximetry 100 100 Oxygen Delivery Room Air Exam Narrative: General - Awake and alert. No acute distress Eyes - PERRLA, EOM intact ENT - No thrush, No erythema Neck - No noticeable or palpable swelling Lymph Nodes - No lymphadenopathy Cardiovascular - RRR no m/r/g, no JVD Lungs: Clear to auscultation, No wheezing, use of accessory muscles, no crackles or wheezes. Skin - Skin warm and dry, no wounds or rashes Abdomen - Normal bowel sounds, abdomen soft and nontender Extremities - No edema, cyanosis or clubbing Musculoskeletal - 5/5 strength, normal range of motion, no swollen or erythematous joints. Neurological ? Alert and oriented x 3, CN 2-12 grossly intact. Psych: Normal mood and affect H&P: Results Labs Labs: Short CBC 08/03/24 08/04/24 Range/Units 18:03 08:35 WBC 6.5 5.2 (4.5-10.0) K/mm3 Hgb 12.5 L 13.0 L (14.0-18.0) g/dL Hct 36.8 L 38.2 L (42.0-52.0) % Plt Count 246 259 (150-375) k/mm3 BMP 08/03/24 08/04/24 18:03 08:35 Sodium 133 L 136 L Potassium 3.4 3.4 Chloride 101 102 Carbon Dioxide 24 27 BUN 19 15 Creatinine 1.05 0.80 Glucose 122 H 95 Calcium 9.0 8.9 Cardiac Enzymes 08/03/24 Range/Units 18:03 Troponin I < 0.012 (0.000-0.034) ng/mL Liver Function 08/03/24 08/04/24 Range/Units 18:03 08:35 Total Bilirubin 0.2 0.5 (0.2-1.3) mg/dL AST 29 30 (17-59) U/L ALT 21 21 (6-50) U/L Alkaline Phosphatase 82 86 (38-126) U/L Albumin 4.2 4.2 (3.5-5.1) g/dL Assessment and Plan Assessment and plan (1) Hx of seizure disorder: Code(s): Z86.69 - Personal history of other diseases of the nervous system and sense organs Status: Acute Assessment and Plan: Remote hx seizure in 1996 prior to diagnosis of brain tumor. None since then Home meds: Keppra 500mg BID & Tegretol 200mg BID --Increase Keppra to 1000mg BID, continue Tegretol to 200mg BID (2) Right sided weakness: Code(s): R53.1 - Weakness Status: Acute Assessment and Plan: Sudden onset weakness, right arm and leg. Remote history 08/03 CTA Head/neck showed: No large vessel intracranial occlusion, high-grade intracranial stenosis, or aneurysm. No carotid or vertebral artery occlusion, dissection, or significant stenosis. Nonfilling of the distal sigmoid sinus and upper/mid internal jugular vein on the left, which may be secondary to thrombus or unopacified blood/contrast phase. Consider MRV for further evaluation. Thoracic aortic ectasia. --MRI Brain, MRV Brain --Neurology consulted, recommended increased keppra dose Quality VTE Prophylaxis VTE prophylaxis: mechanical ordered and pharmacologic ordered Hospitalist MIPS Advance Care Plan I have confirmed that the patient's Advanced Care Plan is present, code status is documented, or surrogate decision maker is listed in patient medical record.: Yes Medication Reconciliation I have utilized all available resources to obtain, update and review the patients current medications (includes all prescriptions, OTC, herbals, cannabis, and nutritional supplements).: Yes
--- NOTE | 2024-08-04 17:24 | P.DS_ITS ---
DS: Admitting Diagnosis Discharge Date 08/04/2024 Admitting Diagnosis Right sided weakness DS: Discharge Diagnosis Discharge Diagnosis (1) Hx of seizure disorder: Code(s): Z86.69 - Personal history of other diseases of the nervous system and sense organs Status: Acute Assessment and Plan: (2) Right sided weakness: Code(s): R53.1 - Weakness Status: Acute Assessment and Plan: DS: Summary Hospital Course Reason for hospitalization: Copied from [facility]: Emil Christian is a 69 year old man remote hx seizure in 1996, oligodendroglioma grade III/IV. 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 Symptoms preceeded by a feeling of lightheadedness and feeling flushed. He sat down so he didn't fall. Symptoms lasted about 10 min utes. Also reported he felt better after IV fluids with EMS. VSS, Afebrile, HR 63-67, BP slightly above goal,145/90, RA in the ED. Not on outpatient meds for blood pressure, which is above goal, BP 154-166/88-90. Labs stable, Na 136, Potassium 3.4, Na 136, otherwise CBC & CMP normal. 08/03 Chest x-ray No acute cardiopulmonary pathology. 08/[address] no acute process 08/03 CTA No large vessel intracranial occlusion, high-grade intracranial stenosis, or aneurysm.No carotid or vertebral artery occlusion, dissection, or significant stenosis. Nonfilling of the distal sigmoid sinus and upper/mid internal jugular vein on the left, which may be secondary to thrombus or unopacified blood/contrast phase. Consider MRV for further evaluation. Hospital Course: Right sided weakness: Sudden onset weakness, right arm and leg. Resolved. Neurology consulted during admission. Recommended workup for TIA but patient from out of town and decided to leave against medical advice. Planning to follow up with his regular neurologist and neurosurgeon. Recommended daily aspirin until follow up. Pos sibility of incomplete seizure so increased Keppra below. Otherwise discussed MRV with neurology and presentation not consistent with thrombus given absence of headache so can defer MRI/MRV to outpatient and neurology did not recommend anticoagulation 08/03 CTA Head/neck showed: No large vessel intracranial occlusion, high-grade intracranial stenosis, or aneurysm. No carotid or vertebral artery occlusion, dissection, or significant stenosis. Nonfilling of the distal sigmoid sinus and upper/mid internal jugular vein on the left, which may be secondary to thrombus or unopacified blood/contrast phase. Consider MRV for further evaluation. Thoracic aortic ectasia. Hx of seizure disorder: Remote hx seizure in 1996 prior to diagnosis of brain tumor. None since then Home meds: Keppra 500mg BID & Tegretol 200mg BID Increased Keppra to 1000mg BID overnight. continued Tegretol to 200mg BID --Discharged with Keppra 750mg BID Time Spent with Patient Time attestation: Total time spent providing and/or coordinating discharge services: Exam Narrative: General - Awake and alert. No acute distress Eyes - PERRLA, EOM intact ENT - No thrush, No erythema Neck - No noticeable or palpable swelling Lymph Nodes - No lymphadenopathy Cardiovascular - RRR no m/r/g, no JVD Lungs: Clear to auscultation, No wheezing, use of accessory muscles, no crackles or wheezes. Skin - Skin warm and dry, no wounds or rashes Abdomen - Normal bowel sounds, abdomen soft and nontender Extremities - No edema, cyanosis or clubbing Musculoskeletal - 5/5 strength, normal range of motion, no swollen or erythe matous joints. Neurological ? Alert and oriented x 3, CN 2-12 grossly intact. Psych: Normal mood and affect DS: Data Data Completed and Pending Labs on day of discharge: Labs from last 24 hours 08/04/24 08/03/24 08/03/24 08:35 18:03 18:01 WBC 5.2 6.5 RBC 3.71 L 3.59 L Hgb 13.0 L 12.5 L Hct 38.2 L 36.8 L MCV 103.0 H 102.5 H MCH 35.0 H 34.8 H MCHC 34.0 34.0 RDW 12.5 12.4 Plt Count 259 246 MPV 8.6 8.7 Immature Gran % (Auto) 0.2 0.3 Neut % (Auto) 59.9 60.9 Lymph % (Auto) 26.6 27.6 [place] % (Auto) 9.8 H 8.4 Eos % (Auto) 3.1 2.5 Baso % (Auto) 0.4 0.3 Lymph # (Auto) 1.39 1.78 [place] # (Auto) 0.5 0.5 Eos # (Auto) 0.2 0.2 Baso # (Auto) 0.0 0.0 Abs Immat Gran (auto) 0.01 0.02 Absolute Neuts (auto) 3.1 3.9 Absolute Nucleated RBC 0.000 0.000 Nucleated RBC % 0.0 0.0 PT 12.9 INR 0.9 APTT 26.5 Sodium 136 L 133 L Potassium 3.4 3.4 Chloride 102 101 Carbon Dioxide 27 24 Anion Gap 7 8 BUN 15 19 Creatinine 0.80 1.05 Estim Creat Clear Calc 78 63 Estimated GFR > 60 > 60 Glucose 95 122 H POC Capillary Glucose 121 H Calcium 8.9 9.0 Total Bilirubin 0.5 0.2 AST 30 29 ALT 21 21 Alkaline Phosphatase 86 82 Troponin I < 0.012 Total Protein 7.0 7.0 Albumin 4.2 4.2 Ethyl Alcohol < 10 Discharge Plan Discharge Attending physician on discharge: Radha Rincon Consulting providers: Flako Kitchen; Coleen Zhou; [place]; Kamlesh Kerr Discharging Clinician: Radha Rincon Anticipated Discharge Date/Time: 08/04/24 17:11 Patient Disposition: Left Against Medical Advice Activity: may shower Diet: regular Discharge Instructions: Follow up with your PCP and Neurologist in 1-2 weeks to discuss the head CT results and a possible MRI. Neurology did not believe an MRV was needed. Recommend an outpatient Echo of your heart (TTE). Come back to the hospital for new symptoms of acute stroke such as new sudden weakness, difficulty weakness. Started a baby aspirin daily until follow up with your PCP. Patient Instructions: Stroke (GEN) Patient Language: Wallisian Follow-up/Referrals: Russ Echevarria [Other] Discharge Medications: New levetiracetam [Keppra] 750 mg tablet 750 mg PO BID Qty: 10 0RF aspirin 81 mg tablet 81 mg PO DAILY Qty: 30 0RF Continued carbamazepine 200 mg tablet 200 mg PO Q12H Rx Instructions: take 100 mg HS acetaminophen [Aminofen] 325 mg tablet 325 mg PO BID calcium carbonate-vitamin D2 600 mg calcium- 200 unit tablet 2 tablet PO DAILY Men 50 Plus Multivitamin [id number] mcg tablet 1 tablet PO DAILY cyanocobalamin (vitamin B-12) 1,000 mcg capsule 1,000 mcg PO DAILY Changed ibuprofen 200 mg tablet 200 mg PO BID PRN (Reason: Pain) Qty: 30 0RF Discontinued levetiracetam 500 mg tablet 500 mg PO Q12H Date of admission: 08/04/24 00:40 Primary Care Provider: Russ Echevarria Admitting Provider: Tyree Arce Attending physician on admission: Radha Rincon Condition: Stable Quality VTE Prophylaxis VTE prophylaxis: mechanical ordered and pharmacologic ordered Hospitalist MIPS Heart Failure (Exclusion) Patient has history of Heart Transplant or Left Ventricular Assistive Device?: No IF YES, STOP HERE Heart Failure (Qualifier) Patient has current or prior documentation of LVEF less than or equal to 40%, or mod/servere depressed LVSF?: No IF NO, STOP HERE
== END 2024-08-04 18:06 | disposition left against medical advice (07) ==
LOC: ANHED 23:28 → ANH2MED 08-04 01:35
PROVIDERS: Emergency Medicine; Admitting Provider General Practice; Emergency Provider Emergency Medicine; Visit Provider Nurse Practitioner Acute Care
DX: R53.1 Weakness (principal); Z85.841 Personal history of malignant neoplasm of brain; Z86.69 Personal history of other diseases of the nervous system and sense organs; Z79.899 Other long term (current) drug therapy; Z98.890 Other specified postprocedural states
CPT/HCPCS: 36415; 70450; 70496; 70498; 71046; 80053; 82077; 82948; 84484; 85025; 85610; 85730; 93005; 96374; 99285; A9270; G0378; Q9967